=== PATIENT | female | born 1960 | race Caucasian/White ===

== ENCOUNTER → 2016-06-10 | Outpatient (CLI) | payer OTHER ==
[~2016-06-10] MED LIST: BACTRIM DS 8001 TAB PO; CELEXA40 MG PO; DECADRON 4MG TAB4 MG PO; DOXYCYCLINE 10100 MG PO; ELAVIL10 MG PO; ELAVIL150 MG PO; NORCO 325 MG-51 TAB PO; PRINIVIL2.5 MG PO; PROTONIX 40MG T40 MG PO; SYNTHROID 0.0.025 MG PO
== END ==
LOC: COL.LAB 15:15 → ZLAB.FHCC 15:15
DX: E03.8 Other specified hypothyroidism (principal)

== ENCOUNTER → 2017-05-26 | Outpatient (CLI) | payer SELFPAY ==
[2017-05-26 15:36] LABS: HEMATOCRIT 39.1 % (37.0-47.0); HEMOGLOBIN 13.5 g/dl (12.5-16.0)
[2017-05-26 15:46] LABS: ALBUMIN 4.2 gm/dL (3.5-5.0); BILIRUBIN,TOTAL 0.5 mg/dL (0.0-1.0); CALCIUM 9.1 mg/dL (8.4-10.2); CHOLESTEROL RISK RATIO 4.9; CREATININE, serum 0.64 mg/dL (0.52-1.25); POTASSIUM 3.7 mmol/L (3.4-5.0); TOTAL PROTEIN 7.6 gm/dL (6.4-8.2)
[2017-05-26 16:16] LABS: THYROID STIMULATING HORMONE 2.71 uIU/mL (0.465-4.680)
== END ==
LOC: COL.LAB 15:04
PROVIDERS: Internal Medicine
DX: E78.5 Hyperlipidemia, unspecified (principal); E03.9 Hypothyroidism, unspecified

== ENCOUNTER → 2018-05-19 | Outpatient (CLI) | payer SELFPAY ==
[2018-05-19 17:04] LABS: HEMATOCRIT 41.5 % (37.0-47.0); HEMOGLOBIN 14.2 g/dl (12.5-16.0)
[2018-05-19 17:06] LABS: BILIRUBIN,TOTAL 0.5 mg/dL (0.0-1.0); CALCIUM 9.4 mg/dL (8.4-10.2); CHOLESTEROL RISK RATIO 6.5; CREATININE, serum 0.64 mg/dL (0.52-1.25); TOTAL PROTEIN 7.3 gm/dL (6.4-8.2)
[2018-05-19 17:35] LABS: THYROID STIMULATING HORMONE 5.15 uIU/mL (0.465-4.680)
== END ==
LOC: ZLAB.FHCC 12:35
PROVIDERS: Internal Medicine
DX: E03.9 Hypothyroidism, unspecified (principal); K21.9 Gastro-esophageal reflux disease without esophagitis

== ENCOUNTER → 2019-06-15 | Outpatient (CLI) | payer SELFPAY ==
[2019-06-15 18:18] LABS: ALBUMIN 4.5 gm/dL (3.5-5.0); BILIRUBIN,TOTAL 0.6 mg/dL (0.0-1.0); CALCIUM 9.2 mg/dL (8.4-10.2); CREATININE, serum 1.08 (0.52-1.25); POTASSIUM 4.3 mmol/L (3.4-5.0); TOTAL PROTEIN 8.1 gm/dL (6.4-8.2)
[2019-06-15 18:48] LABS: THYROID STIMULATING HORMONE 5.59 uIU/mL (0.465-4.680)
== END ==
LOC: ZLAB.FHCC 15:22
PROVIDERS: Pediatrics
DX: Z01.89 Encounter for other specified special examinations (principal)

== ENCOUNTER 2020-12-19 11:22 | Emergency (ER) | payer OTHER ==
[~2020-12-19] VITALS: Ht 157.5 cm; Wt 90.9 kg
[2020-12-19 11:29] VITALS: TEMP 98.2
[2020-12-19 11:58] LABS: BASO # 0.1 (0.0-0.2); BASO % 0.7 % (0.0-2.0); EOS # 0.1 (0.0-0.7); EOS % 1.5 % (0-4.0); GRAN # 4.2 (1.4-6.5); GRAN % 52.4 % (42.2-75.2); HEMATOCRIT 38.8 % (37.0-47.0); LYMPH # 3.1 (1.2-3.4); LYMPH % 38.7 % (20.0-51.0); MEAN CELL VOLUME 88 fl (80.0-100.0); MEAN CORPUSCULAR HEMOGLOBIN 29 pg (27.0-31.0); MEAN CORPUSCULAR HGB CONC 34 g/dl (33.0-37.0); MEAN PLATELET VOLUME 9.2 fl (7.4-10.4); MONO # 0.5 (0.1-0.6); MONO % 6.3 % (1.7-9.3); PLATELET COUNT 336 K/mm3 (130-400); RED BLOOD COUNT 4.42 M/mm3 (4.10-5.30); REDCELL DISTRIBUTION WIDTH-CV 12.6 % (11.5-14.5)
[2020-12-19 12:06] LABS: ALBUMIN 4.1 gm/dL (3.5-5.0); BILIRUBIN,TOTAL 0.1 mg/dL (0.0-1.0); CALCIUM 8.7 mg/dL (8.4-10.2); CREATININE, serum 0.81 (0.52-1.25); POTASSIUM 3.7 mmol/L (3.4-5.0); TOTAL PROTEIN 7.8 gm/dL (6.4-8.2)
[2020-12-19 12:16] LABS: C-REACTIVE PROTEIN 1.3 mg/dL (0.0-0.9)
[2020-12-19 12:18] LABS: TROPONIN-I 0.017 ng/mL (0.000-0.035)
[2020-12-19] MEDS ORDERED: NITROSTAT0.4 MG/TAB SL (17:44)
[2020-12-19 17:53] VITALS: BP 137/94; PULSE 79
== END 2020-12-19 17:53 | disposition home or self-care (01) ==
LOC: COL.ER 11:22
PROVIDERS: Nurse Practitioner
DX: R07.89 Other chest pain (principal); K21.9 Gastro-esophageal reflux disease without esophagitis; E03.9 Hypothyroidism, unspecified; F17.210 Nicotine dependence, cigarettes, uncomplicated; Z79.890 Hormone replacement therapy; Z79.899 Other long term (current) drug therapy

== ENCOUNTER 2021-01-19 07:22 | Day surgery (SDC) | payer OTHER ==
[2021-01-19] VITALS (12 sets, daily range): BP systolic 95–130; BP diastolic 68–85; PULSE 67–79; TEMP 98.4
[~2021-01-19] VITALS: Ht 157.5 cm; Wt 100.2 kg
[~2021-01-19 07:22] MED LIST changes: +NITROSTAT0.4 MG/TAB SL
[2021-01-19] MEDS ORDERED: LOPRESSOR 225 MG/TAB PO (07:48)
[2021-01-19] MEDS ORDERED: ASPIRIN 32325 MG/TAB PO (07:49)
[2021-01-19] MEDS ORDERED: IMDUR 30MG30 MG/TAB PO (07:51)
[2021-01-19] MEDS ORDERED: PROTONIX 40MG T40 MG PO (07:51)
[2021-01-19 08:42] LABS: HEMATOCRIT 38.7 % (37.0-47.0); HEMOGLOBIN 12.9 g/dl (12.5-16.0); MEAN CELL VOLUME 88 fl (80.0-100.0); MEAN CORPUSCULAR HEMOGLOBIN 29 pg (27.0-31.0); MEAN CORPUSCULAR HGB CONC 33 g/dl (33.0-37.0); MEAN PLATELET VOLUME 9.3 fl (7.4-10.4); PLATELET COUNT 315 K/mm3 (130-400); REDCELL DISTRIBUTION WIDTH-CV 12.9 % (11.5-14.5)
[2021-01-19 08:57] LABS: INR 1.1 (0.8-3.0); PROTHROMBIN TIME 12.7 SECONDS (9.7-12.8)
[2021-01-19 08:58] LABS: CREATININE, serum 0.83 mg/dL (0.57-1.11); POTASSIUM 3.8 mmol/L (3.5-4.5)
[2021-01-19 08:59] LABS: PARTIAL THROMBOPLASTIN TIME 32.3 SECONDS (26.0-37.0)
--- NOTE | 2021-01-19 13:48 | NUR ---
SEE MERGE DOCUMENTATION FOR MEDICATION ADMINISTRATION AND INTRA/POST PROCEDURE SEDATION ASSESSMENTS.
[2021-01-19] MEDS ORDERED: LIPITOR 40MG TA40 MG PO (15:22)
[2021-01-19] MEDS ORDERED: ASPIRIN E.C. 8181 MG PO (15:23)
[2021-01-19] MEDS ORDERED: GNC L-ARGININE500 MG PO (15:24)
[2021-01-19] MEDS ORDERED: AMOXICILLIN 8751 TAB PO (15:26)
--- NOTE | 2021-01-19 16:45 | NUR ---
LAST 3 ML OF AIR REMOVED FROM RR PRESSURE CUFF, AND DEVICE REMOVED NO BLEEDING NOTED. DISCUSSED DISCHARGE INSTRUCTIONS WITH PATIENT, SHE IS AWARE OF 4 MEDS BEING CALLED IN TO HER PHARMACY, AND DATES FOR F/U. ALL QUESTIONS ANSWERED, PT VERBALIZED UNDERSTANDING OF DISCHARGE INSTRUCTIONS, AND SIGNED. PT CHANGED INTO CLOTHES, IV DC'D, PT ESCORTED TO FRONT DOOR VIA WHEELCHAIR.
== END 2021-01-19 17:15 | disposition home or self-care (01) ==
LOC: COL.CAR 07:22
PROVIDERS: Internal Medicine Cardiovascular Disease
DX: I25.10 Atherosclerotic heart disease of native coronary artery without angina pectoris (principal); R94.39 Abnormal result of other cardiovascular function study; G47.00 Insomnia, unspecified; K21.9 Gastro-esophageal reflux disease without esophagitis; E03.9 Hypothyroidism, unspecified; F17.210 Nicotine dependence, cigarettes, uncomplicated; Z20.822 Contact with and (suspected) exposure to COVID-19; Z79.890 Hormone replacement therapy; Z79.899 Other long term (current) drug therapy; Z79.82 Long term (current) use of aspirin
CPT/HCPCS: C1769; J1644; J2250; J3010